=== PATIENT | female | born 1960 | race Caucasian/White ===

== ENCOUNTER → 2022-06-16 14:08 | Outpatient (CLI) | payer OTHER, SELFPAY ==
[2022-06-16 15:13] LABS: Influenza A - CEPHEID Flu A NEGATIVE (NEGATIVE); Influenza B - CEPHEID Flu B NEGATIVE (NEGATIVE); Respiratory Syncytial Virus Negative (Negative)
[2022-06-16 15:14] LABS: COVID-19 CEPHEID 4-PLEX PCR Negative (Negative)
== END ==
PROVIDERS: Visit Provider Nurse Practitioner Family
DX: J02.9 Acute pharyngitis, unspecified (principal); R09.81 Nasal congestion; R52 Pain, unspecified; R53.83 Other fatigue; U07.1 COVID-19
CPT/HCPCS: 0241U; 87070